=== PATIENT | female | born 1990 | race Caucasian/White ===

== ENCOUNTER 2024-10-31 15:44 | Emergency (ER) | payer OTHER ==
[~2024-10-31] VITALS: Ht 162.6 cm; Wt 80.3 kg
[2024-10-31] MEDS ORDERED: IV NORMAL SALINE 1000 ML BAG IV ONE (16:00)
[2024-10-31 16:15] VITALS: BP 133/60; O2SAT 99
== END 2024-10-31 16:17 | disposition home or self-care (01) ==
LOC: ER 15:44
DX: R55 Syncope and collapse (principal); R00.0 Tachycardia, unspecified; Z60.2 Problems related to living alone
CPT/HCPCS: A4606; A4663